=== PATIENT | female | born 1940 | race Caucasian/White ===

== ENCOUNTER → 2019-01-07 | Outpatient (CLI) | payer MEDICARE ==
--- NOTE | 2019-01-07 18:44 | CARDNUC ---
[place] [address] CARDIAC NUCLEAR IMAGING REPORT Name: CASETHUY Room: [facility]#: [id number] Admission: 01/07/19 Attend Phys: Rajan Bose, Discharge: Date of : 36 Date of Service: 01/07/19 1843 Report #: [id number] THIS REPORT FOR: //name// APPROVED REPORT Study performed: 01/07/2019 12:30:00 Indication: Chest pain Patient Location: Out-Patient Stress Tech: Radha Alaniz Stress Nurse: Jeanne Ahn RN BMI: 0 Medical History Medications: Amlodipine, Aspirin, Bystolic, Avapro, rosuvastatin Allergies: No known drug allergies Cardiac Risk Factors: Tobacco History (Current/Recent), HTN, Age, Hyperlipidemia Previous Cardiac Procedures: PCI Resting Data Rest SPECT myocardial perfusion imaging was performed in supine position 30 minutes following the intravenous injection of 10.5 mCi of Tc-99m Sestamibi. Time of rest injection: 1300 The images were gated to evaluate regional wall motion and calculate left ventricular ejection fraction. Administration Route: IV Administration Site: Left Arm Pharmacologic Stress Pharmacologic stress test was performed by injecting Regadenoson 0.4 mg IV push over 10-15 seconds immediately followed by the intravenous injection of 34.8 mCi of Tc-99m Sestamibi. Time of stress injection: 1435 Administration Route: IV Administration Site: Left Arm Heart Rate at time of stress injection: 79 bpm. Gated Stress SPECT was performed 45 minutes after stress injection. The images were gated to evaluate regional wall motion and calculate left ventricular ejection fraction. Prone [place] [address] CARDIAC NUCLEAR IMAGING REPORT Name: CASETHUY Room: [facility]#: [id number] Admission: 01/07/19 Attend Phys: Rajan Bose, Discharge: Date of : 36 Date of Service: 01/07/19 1843 Report #: [id number] Stress Test Details Stress Test: Pharmacologic stress testing performed using 0.4 mg of regadenoson per 5 mL given IV over 10 seconds. Reason for pharmacologic stress test: physical limitation. HR Max Heart Rate (APMHR): 140 bpm Resting HR: 63 bpm Target HR (85% APMHR): 119 bpm Max HR Achieved: 79 bpm % of APMHR: 56 Recovery HR: 75 bpm HR response to stress: Normal HR response to stress BP Resting BP: 126/77 mmHg Max BP: 150/62 mmHg Recovery BP: 160/67 mmHg BP response to stress: Normal blood pressure response to stress. ECG Resting ECG: Sinus Rhythm Stress ECG: Sinus Rhythm ST Change: None Arrhythmia: None Recovery ECG: Sinus Rhythm Recovery ST Change: None Recovery Arrhythmia: None Clinical Reason for Termination: Completed protocol Stress Symptoms: None The patient tolerated Lexiscan infusion without significant symptoms. Stress ECG Conclusion The baseline 12-lead EKG show sinus rhythm without significant ST or T wave abnormality. EKGs obtained during and post Lexiscan infusion showed sinus rhythm with no significant ST or T wave changes when compared to baseline. There were no stress-induced arrhythmias. Study Quality Study: Fair Artifact: Moderate Soft tissue attenuation [place] [address] CARDIAC NUCLEAR IMAGING REPORT Name: CASE,THUY MCKENZIE Room: [facility]#: [id number] Admission: 01/07/19 Attend Phys: Rajan Bose, Discharge: Date of : 36 Date of Service: 01/07/19 1843 Report #: [id number] At rest, the left ventricular ejection fraction was 76%.. Post stress, the left ventricular ejection was 72%.. TID = 1.21. Perfusion No significant fixed or reversible perfusion defects were identified. There was significant extracardiac uptake of tracer adjacent to the inferolateral wall. Wall Motion Gated images were distorted by extracardiac uptake. Global LV function appears preserved. Nuclear Conclusion ECG Findings: negative for ischemia Clinical Findings: negative for ischemia Nuclear Findings: negative for ischemia Exercise Capacity: not assessed Left Ventricular Function: preserved Risk Study: low Myocardial perfusion images show no defect to suggest infarct or ischemia. Global LV systolic function appears normal. His is a low risk study. <Conclusion> The baseline 12-lead EKG show sinus rhythm without significant ST or T wave abnormality. EKGs obtained during and post Lexiscan infusion showed sinus rhythm with no significant ST or T wave changes when compared to baseline. There were no stress-induced arrhythmias. <ELECTRONICALLY SIGNED> By: Oscar Nash MD, FACC 01/07/191842 42 42 Oscar Nash MD, FACC /INF
== END ==
LOC: M.NUC 12-13 14:10
DX: I25.119 Atherosclerotic heart disease of native coronary artery with unspecified angina pectoris (principal); I65.23 Occlusion and stenosis of bilateral carotid arteries; I10 Essential (primary) hypertension; E78.00 Pure hypercholesterolemia, unspecified; F17.210 Nicotine dependence, cigarettes, uncomplicated; Z79.899 Other long term (current) drug therapy; Z90.49 Acquired absence of other specified parts of digestive tract; Z90.710 Acquired absence of both cervix and uterus; Z82.49 Family history of ischemic heart disease and other diseases of the circulatory system; Z82.3 Family history of stroke